=== PATIENT | male | born 1960 | race Caucasian/White ===

== ENCOUNTER 2018-09-13 13:51 | Emergency (ER) | payer MEDICAID, OTHER ==
[~2018-09-13] VITALS: Ht 185.4 cm; Wt 86.2 kg
[2018-09-13 13:52] VITALS: BP_SYST 132
[2018-09-13] MEDS ORDERED: KETOROLAC TROMETHAMINE 30 MG VIAL IVP ONE (14:15)
[2018-09-13] MEDS ORDERED: ACETAMINOPHEN 500 MG TABLET PO ONE (14:15)
[2018-09-13 14:32] LABS: HEMATOCRIT 40.2 % (36-54); HEMOGLOBIN 13.6 g/dL (14.0-18.0); RED BLOOD CELL COUNT(AUTO) 4.52 MIL/uL (4.2-6.2); WHITE BLOOD COUNT (AUTO) 14.2 K/uL (4.8-10.8)
[2018-09-13 14:33] LABS: BASOPHILS % (AUTO) 0.2 % (0.0-2.0); LYMPHOCYTES # (AUTO) 0.7 K/uL (1.0-5.5); LYMPHOCYTES % (AUTO) 4.9 % (20.5-51.5); MEAN CORPUSCULAR HEMOGLOBIN 30 pg (27-31); MEAN CORPUSCULAR HGB CONC 34 % (32-36); MEAN CORPUSCULAR VOLUME 89 fL (79.0-98.0); MONOCYTES # (AUTO) 0.9 K/uL (0.0-1.0); MONOCYTES % (AUTO) 6.4 % (1.7-9.3); NEUTROPHILS # (AUTO) 12.6 K/uL (1.8-7.7); NEUTROPHILS % (AUTO) 88.5 % (40.0-70.0); PLATELET COUNT (AUTO) 207 K/uL (130-430); RED CELL DISTRIBUTION WIDTH 13.7 % (9.0-15.0)
[2018-09-13 14:41] LABS: CALCIUM 8.9 mg/dL (8.4-11.0); CREATININE 1.07 mg/dL (0.55-1.30); POTASSIUM 3.5 mmol/L (3.5-5.1)
[2018-09-13 14:45] LABS: PROTHROMBIN TIME 10.2 SECS (9.5-12.5)
[2018-09-13 14:47] LABS: ALBUMIN 3.6 g/dL (3.4-4.8); TOTAL BILIRUBIN 0.7 mg/dL (0.0-1.0)
[2018-09-13 15:10] LABS: BILIRUBIN,URINE NEGATIVE (NEGATIVE); BLOOD, URINE TRACE (NEGATIVE); CLARITY/URINE CLEAR (CLEAR); COLOR,URINE YELLOW (YELLOW); GLUCOSE,URINE NEGATIVE (NEGATIVE); KETONES,URINE NEGATIVE (NEGATIVE); LEUKOCYTE ESTERASE ,URINE NEGATIVE (NEGATIVE); NITRITE, URINE NEGATIVE (NEGATIVE); PH,URINE 5.5 (5.0-8.0); PROTEIN URINE NEGATIVE (NEGATIVE); UROBILINOGEN,URINE 0.2 (0.2-1.0)
[2018-09-13 15:18] LABS: BACTERIA,URINE FEW /HPF (None Seen); RBC,URINE 0-3 /HPF (0-3); WBC,URINE 0-3 /HPF (0-3)
[2018-09-13] MEDS ORDERED: IOHEXOL 350 mgI/mL, 150 ML INFUS..BTL IV ONE (18:10)
[2018-09-13 19:15] VITALS: BP_SYST 110
== END 2018-09-13 19:15 | disposition home or self-care (01) ==
LOC: SED 13:51
DX: J18.8 Other pneumonia, unspecified organism (principal); R53.83 Other fatigue; K21.9 Gastro-esophageal reflux disease without esophagitis
CPT/HCPCS: 36415; 71045; 71275; 80053; 81000; 83605; 84484; 85025; 85610; 85730; 86710; 87040; 87086; 93005; 96374; 99284; J1885; Q9967

== ENCOUNTER 2022-04-27 14:31 | Emergency (ER) | payer MEDICAID ==
[~2022-04-27] VITALS: Ht 185.4 cm; Wt 88.5 kg
--- NOTE | 2022-04-27 15:00 | NUR ---
Pt brought by self, A&Ox4, pt presents to ED with episode of purple skin color on hands , states he noticed the same symptoms few weeks ago, pt VSS, respirations even and unlabored, cap refill <3.
[2022-04-27 15:20] VITALS: BP_SYST 147
--- NOTE | 2022-04-27 18:00 | NUR ---
ER at bedside examining patient.
[2022-04-27 18:17] VITALS: BP_SYST 148
--- NOTE | 2022-04-27 18:19 | NUR ---
Patient given written and verbal discharge instructions and verbalizes understanding. ER MD discussed with patient the results and treatment provided. Patient in stable condition. ID arm band removed. Opportunity for questions provided and answered. Medication side effect fact sheet provided.
== END 2022-04-27 18:17 | disposition home or self-care (01) ==
LOC: SED 14:31
DX: I73.00 Raynaud's syndrome without gangrene (principal); R20.2 Paresthesia of skin; Z79.899 Other long term (current) drug therapy
CPT/HCPCS: 99281